=== PATIENT | female | born 1980 | race Caucasian/White ===

== ENCOUNTER 2018-01-21 11:03 | Emergency (ER) | payer OTHER ==
[~2018-01-21] VITALS: Ht 167.6 cm; Wt 108.9 kg
[2018-01-21] MEDS ORDERED: LABETALOL HCL 5 MG/ML 20ML VIAL IV STA (11:17)
[2018-01-21 11:29] LABS: BASOPHILS # (AUTO) 0.1 (0.0-0.1); BASOPHILS % 0.9 % (0.0-1.0); EOSINOPHILS # (AUTO) 0.6 (0.0-0.4); EOSINOPHILS % 4.5 % (0.0-6.0); HEMATOCRIT 42.6 % (34.2-44.1); LYMPHOCYTES # (AUTO) 3.8 (1.0-3.2); LYMPHOCYTES % 29.2 % (18.0-39.1); MEAN CORPUSCULAR HEMOGLOBIN 28.3 pg (28-32); MEAN CORPUSCULAR HGB CONC 32.9 g/dL (31-35); MEAN CORPUSCULAR VOLUME 86.1 fL (81-99); MONOCYTES # (AUTO) 1.1 (0.2-0.8); MONOCYTES % 8.5 % (4.4-11.3); NEUTROPHILS # (AUTO) 7.4 (2.1-6.9); NEUTROPHILS % 56.5 % (38.7-80.0); PLATELET COUNT 340 x10e3/uL (140-360); RED BLOOD COUNT 4.95 x10e6/uL (3.6-5.1); RED CELL DISTRIBUTION WIDTH 13.2 % (11.7-14.4)
[2018-01-21] MEDS ORDERED: LORAZEPAM INJ 2 MG/ML VIAL IV ONE (11:30)
[2018-01-21 12:05] LABS: BILIRUBIN,URINE NEGATIVE (NEGATIVE); CLARITY,URINE SL CLOUDY (CLEAR); COLOR,URINE YELLOW (YELLOW); KETONES,URINE NEGATIVE (NEGATIVE); LEUKOCYTE ESTERASE ,URINE NEGATIVE (NEGATIVE); NITRITE,URINE NEGATIVE (NEGATIVE); PROTEIN,URINE DIPSTICK NEGATIVE (NEGATIVE); URINE UROBILINOGEN 0.2 mg/dL (0.2 - 1)
[2018-01-21 12:14] LABS: ALANINE AMINOTRANSFERASE 67 IU/L (0-55); ALBUMIN 3.5 g/dL (3.5-5.0); ALBUMIN/GLOBULIN RATIO 0.9 (0.8-2.0); ALKALINE PHOSPHATASE 68 IU/L (40-150); ANION GAP 14.8 mmol/L (8-16); BLOOD UREA NITROGEN 11 mg/dL (7-26); BUN/CREATININE RATIO 15 (6-25); CARBON DIOXIDE 20 mmol/L (22-29); CHLORIDE 108 mmol/L (98-107); CREATININE, SERUM 0.71 mg/dL (0.57-1.11); EST GLOMERULAR FILTRATION RATE > 60 ML/MIN (60-); GLUCOSE 109 mg/dL (74-118); POTASSIUM 4.8 mmol/L (3.5-5.1); SODIUM 138 mmol/L (136-145)
[2018-01-21 12:22] LABS: EPITHELIAL CELLS,URINE FEW /LPF; RBC,URINE >50 /HPF (0-5)
--- NOTE | 2018-01-21 12:58 | Diagnostic Imaging Report ---
PROCEDURE: CHEST SINGLE (PORTABLE) COMPARISON: None. INDICATIONS: JAW PAIN, NAUSEA, DIZZINESS FINDINGS: The lungs are well-inflated. No focal airspace consolidation, pleural effusion, or pneumothorax. Cardiomediastinal contour and pulmonary vasculature are within normal limits for portable, AP technique. No acute osseous abnormality. CONCLUSION: No acute cardiopulmonary abnormality. Dictated by: Yury Kaye M.D. on 01/21/2018 at 13:03 Electronically approved by: Yury Kaye M.D. on 01/21/2018 at 13:03
[2018-01-21] MEDS ORDERED: KETOROLAC TROMETHAMINE 30 MG/ML VIAL IV STA (13:25)
[2018-01-21] MEDS ORDERED: PROPRANOLOL HCL 40 MG TAB PO ONE ×2 (13:30→14:00)
[2018-01-21] MEDS ORDERED: CYCLOBENZAPRINE HCL 10 MG TAB PO ONE (13:30)
[2018-01-21 13:31] VITALS: BP 112/80
[2018-01-21] MEDS ORDERED: LABETALOL HCL 5 MG/ML 20ML VIAL IV ONE (14:00)
[2018-01-21] MEDS ORDERED: PROPRANOLOL HCL 10 MG TAB PO ONE (14:00)
== END 2018-01-21 14:02 | disposition home or self-care (01) ==
LOC: ER 11:03
DX: R07.89 Other chest pain (principal); R11.0 Nausea; M54.2 Cervicalgia; G44.209 Tension-type headache, unspecified, not intractable; F41.0 Panic disorder [episodic paroxysmal anxiety]; I10 Essential (primary) hypertension
CPT/HCPCS: 36415; 71045; 80053; 81001; 84484; 84702; 85025; 99284; J1885; J2060

== ENCOUNTER 2018-05-14 19:08 | Emergency (ER) | payer OTHER ==
[~2018-05-14] VITALS: Ht 167.6 cm; Wt 108.9 kg
--- OUTSIDE RECORDS SUMMARY | 2018-05-14 19:10 | XMS REPORT ---
Author [facility] Address Unknown Phone Unavailable Care Team Providers Care Licensed Plumber Name Role Phone Sandy PONCE Unavailable Unavailable Problems This patient has no known problems. Allergies, Adverse Reactions, Alerts This patient has no known allergies or adverse reactions. Medications This patient has no known medications. Results Test Description Test Time Test Comments Text Results Atomic Results Result Comments CHEST SINGLE (PORTABLE) 2018-01-21 13:03:00 [facility] [address] [address] Patient Name: OLIVER CARRERO MR #: [id number] : 1980 Age/Sex: 37/F Req #: [id number] Adm Physician: Ordered by: CARLOS PONCE MD Report #: [id number] Location: ER Room/Bed: Procedure: [id number] DX/CHEST SINGLE (PORTABLE) Exam Date: 01/21/18 Exam Time: 1240 REPORT STATUS: Signed PROCEDURE: CHEST SINGLE (PORTABLE) COMPARISON: None. INDICATIONS: JAW PAIN, NAUSEA, DIZZINESS FINDINGS: The lungs are well-inflated. No focal airspace consolidation, pleural effusion, or pneumothorax. Cardiomediastinal contour and pulmonary vasculature are within normal limits for portable, AP technique. No acute osseous abnormality. CONCLUSION: No acute cardiopulmonary abnormality. Dictated by: Sheeba Kc M.D. on 01/21/2018 at 13:03 Electronically approved by: Sheeba Kc M.D. on 01/21/2018 at 13:03 Dictated By: SHEEBA KC MD [id number] Transcribed By: ADAMARIS on 01/21/18 1303 COPY TO: CARLOS PONCE MD
[2018-05-14] MEDS ORDERED: ASPIRIN 81 MG CHEW TAB PO ONE (19:30)
[2018-05-14] MEDS ORDERED: MORPHINE SULFATE INJ 4 MG/ML INJ IV ONE (19:45)
[2018-05-14] MEDS ORDERED: ONDANSETRON HCL INJ 2 MG/ML VIAL IV ONE (19:45)
[2018-05-14 20:01] LABS: BASOPHILS # (AUTO) 0.1 (0.0-0.1); BASOPHILS % 0.5 % (0.0-1.0); EOSINOPHILS # (AUTO) 0.4 (0.0-0.4); EOSINOPHILS % 2.3 % (0.0-6.0); HEMATOCRIT 43.3 % (34.2-44.1); HEMOGLOBIN 14.5 g/dL (12.0-16.0); LYMPHOCYTES # (AUTO) 4.3 (1.0-3.2); LYMPHOCYTES % 24.6 % (18.0-39.1); MEAN CORPUSCULAR HEMOGLOBIN 28.8 pg (28-32); MEAN CORPUSCULAR HGB CONC 33.5 g/dL (31-35); MEAN CORPUSCULAR VOLUME 85.9 fL (81-99); MONOCYTES # (AUTO) 1.6 (0.2-0.8); MONOCYTES % 8.9 % (4.4-11.3); NEUTROPHILS % 63.4 % (38.7-80.0); PLATELET COUNT 337 x10e3/uL (140-360); RED BLOOD COUNT 5.04 x10e6/uL (3.6-5.1); RED CELL DISTRIBUTION WIDTH 12.9 % (11.7-14.4)
[2018-05-14 20:18] LABS: ALANINE AMINOTRANSFERASE 33 IU/L (0-55); ALBUMIN 3.5 g/dL (3.5-5.0); ALKALINE PHOSPHATASE 67 IU/L (40-150); ANION GAP 14.7 mmol/L (8-16); BLOOD UREA NITROGEN 7 mg/dL (7-26); BUN/CREATININE RATIO 10 (6-25); CALCIUM 9.4 mg/dL (8.4-10.2); CARBON DIOXIDE 23 mmol/L (22-29); CHLORIDE 103 mmol/L (98-107); CREATINE KINASE 37 IU/L (29-168); CREATININE, SERUM 0.72 mg/dL (0.57-1.11); EST GLOMERULAR FILTRATION RATE > 60 ML/MIN (60-); GLUCOSE 122 mg/dL (74-118); LIPASE 16 U/L (8-78); POTASSIUM 3.7 mmol/L (3.5-5.1); SODIUM 137 mmol/L (136-145)
[2018-05-14 20:38] LABS: EOSINOPHILS % (MANUAL) 2 % (0-7); LYMPHOCYTES % (MANUAL) 10 % (19-48); MONOCYTES % (MANUAL) 11 % (3.4-9.0); NEUTROPHILS % (MANUAL) 72 % (40-74); PLATELET ESTIMATE ADEQUATE; PLATELET MORPHOLOGY COMMENT NORMAL; RBC MORPHOLOGY COMMENT NORMAL
[2018-05-14] MEDS ORDERED: OMEPRAZOLE40 MG PO (20:42)
[2018-05-14] MEDS ORDERED: ESCITALOPRAM OX20 MG PO (20:42)
[2018-05-14] MEDS ORDERED: PROPRANOLOL HCL10 MG PO (20:42)
--- NOTE | 2018-05-14 21:21 | Diagnostic Imaging Report ---
EXAM: CT ABDOMEN AND PELVIS with IV CONTRAST INDICATION: Epigastric pain that radiates to the back COMPARISON: None TECHNIQUE: The abdomen and pelvis were scanned using a multidetector helical scanner. Coronal and sagittal reformations were obtained. Dose modulation, iterative reconstruction, and/or weight based adjustment of the mA/kV was utilized to reduce the radiation dose to as low as reasonably achievable. Routine protocol performed. IV Contrast: 100 cc Isovue-370 Oral Contrast: Water FINDINGS: LOWER THORAX: No consolidations LIVER: No masses BILIARY: The gallbladder has been removed. No ductal dilation. SPLEEN: No masses PANCREAS: No masses ADRENALS: No nodules KIDNEYS: Symmetric perfusion. No enhancing masses. No hydronephrosis. GI TRACT: No distention, wall thickening or evidence of obstruction. Normal appendix. VESSELS: Unremarkable PERITONEUM/RETROPERITONEUM: No free air or fluid LYMPH NODES: No lymphadenopathy REPRODUCTIVE ORGANS: Unremarkable BLADDER: Unremarkable SOFT TISSUES: Unremarkable BONES: No suspicious bone lesions. IMPRESSION: Normal CT of the abdomen and pelvis. Signed by: Dr. Amaya Matias M.D. on 05/14/2018 9:17 PM
[2018-05-14 21:27] LABS: BILIRUBIN,URINE NEGATIVE (NEGATIVE); CLARITY,URINE SL CLOUDY (CLEAR); COLOR,URINE YELLOW (YELLOW); KETONES,URINE NEGATIVE (NEGATIVE); LEUKOCYTE ESTERASE ,URINE TRACE (NEGATIVE); NITRITE,URINE NEGATIVE (NEGATIVE); PROTEIN,URINE DIPSTICK NEGATIVE (NEGATIVE); URINE UROBILINOGEN 0.2 mg/dL (0.2 - 1)
[2018-05-14 21:50] LABS: BACTERIA,URINE FEW /HPF; CALCIUM OXALATE CRYSTALS,UR FEW (FEW); EPITHELIAL CELLS,URINE MODERATE /LPF; RBC,URINE 0-5 /HPF (0-5)
[2018-05-14] MEDS ORDERED: PEPCID20 MG PO (21:58)
[2018-05-14] MEDS ORDERED: SODIUM CHLORIDE 0.9% 50ML 50 ML ONE (22:24)
[2018-05-14] MEDS ORDERED: IOPAMIDOL 370 MG/ML 200 ML INFUS..BTL INJ ONE (22:25)
== END 2018-05-14 22:35 | disposition home or self-care (01) ==
LOC: ER 19:08
DX: R10.12 Left upper quadrant pain (principal); D72.829 Elevated white blood cell count, unspecified
CPT/HCPCS: 36415; 74177; 80053; 81001; 82550; 82553; 83690; 84484; 85025; J2270; J2405; Q9967